=== PATIENT | male | born 1985 | race Caucasian/White ===

== ENCOUNTER 2018-02-28 15:31 | Inpatient (IN) | payer MEDICAID ==
[~2018-02-28] VITALS: Ht 172.7 cm; Wt 75.0 kg
--- NOTE | ~2018-02-28 | OP ---
PATIENT NAME: HEMANTH BROWN MEDICAL RECORD: [id number] LOCATION:[id number] ADMISSION DATE:02/28/18 SURGEON: NICOLE DIXON MD DATE OF OPERATION: 03/02/2018 PREOPERATIVE DIAGNOSIS: Midshaft comminuted humerus fracture, left. POSTOPERATIVE DIAGNOSIS: Midshaft comminuted humerus fracture, left. PROCEDURE: Intramedullary rodding, midshaft left humerus fracture. SURGEON: Nicole Dixon MD ANESTHESIA: General. INTRAOPERATIVE COMPLICATIONS: None. SUMMARY OF PATHOLOGIC FINDINGS: Consistent with preoperative radiographs. The patient had a slightly comminuted midshaft humerus fracture. IMPLANTS USED: Umu Triathlon humeral nail 260 x 9. OPERATIVE SUMMARY IN DETAIL: After obtaining the appropriate preoperative orthopedic surgery consent as well as anesthetic consultation, evaluation and clearance, the patient was brought to the operating room and placed on the operating table in supine position. After general laryngeal airway mask was administered, the patient was placed in beachchair position. All pressure points were well padded. He was held firmly to the operating table using the vacuum pack suction system. The left upper extremity and shoulder were then prepped and draped in routine sterile fashion. The arm was held in Trimano arm holding device. Fluoroscopy was brought in to evaluate the reduction. Reduction was adequate. A small incision was made over the greater tuberosity, taken down to the lateral edge of the greater tuberosity. Small agricultural pilot hole was created. A ball-tipped guidewire was then placed through the fracture site seen on fluoroscopy. Serial and sequential reaming was done to 9.5. Size 9 x [address]. A distal interlocking screw was then followed by gently tapping retrograde to compress the fracture. Proximal locking was then done all under fluoroscopic evaluation. Having completed this, AP and lateral views were taken and sent for final radiologist review. The wound was copiously irrigated. Small rotator cuff was closed with #2 FiberWires followed by #1 Vicryl, 2-0 Vicryl and skin estephanie. Sterile dressings were applied. The patient was awakened and taken to the recovery room in stable condition. All final needle and sponge counts were correct. TRANSINT:[id number] Voice Confirmation ID: [id number] DOCUMENT ID: [id number] NICOLE DIXON MD at 1315 CC: [id number] DICTATION DATE: 03/02/18 1145 LOIN PULLER: 03/02/18 1331 DIS IN 03/03/18 [facility] [address] [place] [address]
[2018-02-28 16:33] LABS: BASOPHILS 0.1 % (0-2); EOSINOPHILS 0.3 % (0-7); HEMATOCRIT 43.4 % (42.0-54.0); HEMOGLOBIN 15.4 g/dL (13.5-17.5); IMMATURE GRANULOCYTES 0.3 % (0-5); LYMPHOCYTES 9.1 % (15-50); MCH 31.7 pg (26.0-34.0); MCHC 35.5 g/dL (31.0-37.0); MCV 89.3 fL (80.0-100.0); MEAN PLATELET VOLUME 10.4 fL (7.4-10.4); MONOCYTES 9.5 % (2-11); NEUTROPHILS 80.7 % (40-80); PLATELET COUNT 162 10x3/uL (130-400); RBC 4.86 10x6/uL (4.20-6.10); RDW 12.9 % (11.5-14.5); WBC 15.2 10x3/uL (4.8-10.8)
[2018-02-28 17:03] LABS: ALBUMIN 4.2 g/dL (3.4-5.0); ALKALINE PHOSPHATASE 92 U/L (46-116); ALT (SGPT) 19 U/L (10-68); BILIRUBIN - TOTAL 0.37 mg/dL (0.2-1.3); CALC OSMOLALITY 280 mosm/kg (275-300); CALCIUM 8.9 mg/dL (8.5-10.1); CHLORIDE - SERUM 105 mmol/L (98-107); CREATININE - SERUM 1.2 mg/dL (0.6-1.3); GLUCOSE 99 mg/dL (74-106); POTASSIUM - SERUM 4.3 mmol/L (3.5-5.1); PROTEIN - SERUM 7.8 g/dL (6.4-8.2); SODIUM 139 mmol/L (136-145); UREA NITROGEN 21 mg/dL (7-18); eGFR NON AFRICAN AMERICAN 75 mL/min (90-120)
[2018-02-28 23:39] VITALS: BP 109/56
[2018-03-01 03:24] VITALS: BP 107/76; Ht 172.7 cm; Wt 75.0 kg
[2018-03-01 04:07] VITALS: BP 91/54
[2018-03-01 05:34] LABS: BASOPHILS 0.2 % (0-2); EOSINOPHILS 0.9 % (0-7); HEMATOCRIT 40.5 % (42.0-54.0); HEMOGLOBIN 13.9 g/dL (13.5-17.5); IMMATURE GRANULOCYTES 0.3 % (0-5); LYMPHOCYTES 16.1 % (15-50); MCH 30.9 pg (26.0-34.0); MCHC 34.3 g/dL (31.0-37.0); MEAN PLATELET VOLUME 10.9 fL (7.4-10.4); MONOCYTES 15.7 % (2-11); NEUTROPHILS 66.8 % (40-80); PLATELET COUNT 154 10x3/uL (130-400)
[2018-03-01 05:37] LABS: ALBUMIN 3.7 g/dL (3.4-5.0); ALKALINE PHOSPHATASE 80 U/L (46-116); ALT (SGPT) 18 U/L (10-68); BILIRUBIN - TOTAL 0.56 mg/dL (0.2-1.3); CALC OSMOLALITY 280 mosm/kg (275-300); CALCIUM 8.5 mg/dL (8.5-10.1); CARBON DIOXIDE 26.4 mmol/L (21.0-32.0); CHLORIDE - SERUM 107 mmol/L (98-107); CREATININE - SERUM 1.1 mg/dL (0.6-1.3); GLUCOSE 101 mg/dL (74-106); POTASSIUM - SERUM 4.1 mmol/L (3.5-5.1); PROTEIN - SERUM 6.9 g/dL (6.4-8.2); SODIUM 140 mmol/L (136-145); UREA NITROGEN 17 mg/dL (7-18); eGFR NON AFRICAN AMERICAN 83 mL/min (90-120)
[2018-03-01 05:38] LABS: WBC 9.8 10x3/uL (4.8-10.8)
[2018-03-01 08:10] VITALS: BP 111/69
[2018-03-01 12:34] VITALS: BP 126/56
[2018-03-01 16:15] VITALS: BP 146/83
[2018-03-01 20:00] VITALS: BP 142/95
[2018-03-02] VITALS: BP 118/68
[2018-03-02 04:00] VITALS: BP 122/67
[2018-03-02 08:49] VITALS: BP 105/62
[2018-03-02 12:36] VITALS: BP 129/88
[2018-03-02 17:09] VITALS: BP 114/70
[2018-03-02 20:00] VITALS: BP 101/58
[2018-03-03] VITALS: BP 109/61
[2018-03-03 04:20] VITALS: BP 106/64
[2018-03-03 04:54] LABS: HEMATOCRIT 37.3 % (42.0-54.0); HEMOGLOBIN 12.6 g/dL (13.5-17.5)
[2018-03-03 08:00] VITALS: BP 107/63
[2018-03-03 09:17] VITALS: BP 101/63
[2018-03-03] MEDS ORDERED: DILAUDID4 MG PO (11:01)
== END 2018-03-03 12:09 | disposition home or self-care (01) | DRG 493 ==
LOC: D.ER 15:31 → D.MS 18:09 → D.EDHOLD 18:09 → D.MS 19:49
PROVIDERS: Family Medicine; Orthopaedic Surgery
PROC: 0PSG06Z Reposition Left Humeral Shaft with Intramedullary Internal Fixation Device, Open Approach (ICD-10-PCS; principal; 2018-03-02 09:00)
DX: S42.322A Displaced transverse fracture of shaft of humerus, left arm, initial encounter for closed fracture (principal); F17.203 Nicotine dependence unspecified, with withdrawal; W01.198A Fall on same level from slipping, tripping and stumbling with subsequent striking against other object, initial encounter; M06.9 Rheumatoid arthritis, unspecified; F41.9 Anxiety disorder, unspecified; M62.838 Other muscle spasm

== ENCOUNTER 2018-03-24 13:46 | Emergency (ER) | payer MEDICAID ==
[~2018-03-24] VITALS: Ht 172.7 cm; Wt 75.0 kg
[~2018-03-24 13:46] MED LIST: DILAUDID4 MG PO
[2018-03-24 14:21] VITALS: Ht 172.7 cm; Wt 75.0 kg
[2018-03-24 16:19] VITALS: BP 122/81
== END 2018-03-24 15:54 | disposition home or self-care (01) ==
LOC: D.ER 13:46
DX: S41.012D Laceration without foreign body of left shoulder, subsequent encounter (principal); X58.XXXD Exposure to other specified factors, subsequent encounter; Z48.02 Encounter for removal of sutures; F17.200 Nicotine dependence, unspecified, uncomplicated

== ENCOUNTER 2019-01-16 13:56 | Emergency (ER) | payer MEDICAID ==
[~2019-01-16] VITALS: Ht 175.3 cm; Wt 75.0 kg
[2019-01-16 14:10] VITALS: BP 114/75; Ht 175.3 cm; Wt 75.0 kg
[2019-01-16] MEDS ORDERED: VOLTAREN75 MG PO (16:28)
== END 2019-01-16 17:00 | disposition home or self-care (01) ==
LOC: D.ER 13:56
DX: M79.602 Pain in left arm (principal)